=== PATIENT | female | born 1980 | race African-American/Black ===

== ENCOUNTER 2024-08-08 19:35 | Emergency (ER) | payer BC, OTHER ==
[~2024-08-08] VITALS: Ht 167.6 cm; Wt 68.0 kg
[2024-08-08 20:57] VITALS: O2SAT 100
== END 2024-08-08 23:50 | disposition left against medical advice (07) ==
LOC: ER 19:35
DX: M79.602 Pain in left arm (principal); F17.200 Nicotine dependence, unspecified, uncomplicated
CPT/HCPCS: A4606; A4663